=== PATIENT | female | born 1950 ===

== ENCOUNTER 2017-03-14 12:56 | Emergency (ER) | payer MEDICARE, MEDICAID ==
[2017-03-14 13:23] VITALS: BP 159/78; PULSE 62; RESP 20; TEMP 97.5; O2SAT 100
--- NOTE | 2017-03-14 14:16 | C.PDOC ---
History Of Present Illness 66 year old female who presents to the ER with a complaint of right middle finger swelling and pain for the past 5 days. Patient states a little pus drained a day ago but pain and persists which prompted ER visit. Denies weakness or numbness of the right middle finger. Time Seen by Provider: 03/14/17 13:37 Chief Complaint (Nursing): Abnormal Skin Integrity History Per: Patient History/Exam Limitations: no limitations Onset/Duration Of Symptoms: Days Current Symptoms Are (Timing): Still Present Location Of Injury: Right: Hand (Middle finger) Quality Of Symptoms: Painful, Swollen Recent travel outside of the [place]: No Past Medical History Reviewed: Historical Data, Nursing Documentation, Vital Signs Vital Signs: Last Vital Signs Temp 97.5 F L 03/14/17 13:20 Pulse 62 03/14/17 13:20 Resp 20 03/14/17 13:20 BP 159/78 H 03/14/17 13:20 Pulse Ox 100 03/14/17 22:12 - Medical History PMH: HTN Surgical History: No Surg Hx Family History: States: Unknown Family Hx - Social History Hx Alcohol Use: No Hx Substance Use: No - Immunization History Hx Tetanus Toxoid Vaccination: No Hx Influenza Vaccination: No Hx Pneumococcal Vaccination: No Review Of Systems Musculoskeletal: Positive for: Hand Pain (Right middle finger) Neurological: Negative for: Weakness, Numbness Physical Exam - Physical Exam Appears: Non-toxic, No Acute Distress Skin: Warm, Dry Head: Atraumatic, Normacephalic Eye(s): bilateral: Normal Inspection Oral Mucosa: Moist Extremity: Normal ROM (x4), Capillary Refill (<2 seconds), No Deformity, Other ( Swelling and erythema to nail margin of right 3rd finger.) Pulses: Left Radial: Normal, Right Radial: Normal Neurological/Psych: Oriented x3, Normal Speech, Normal Cognition, Normal Motor, Normal Sensation Gait: Steady ED Course And Treatment O2 Sat by Pulse Oximetry: 100 (Room air) Pulse Ox Interpretation: Normal - Incision & Drainage Of Abscess Prep Used: Sterile Water, Betadine Procedure: Incised W/Scalpel Blade#: (11) Medical Decision Making Medical Decision Making: Right 3rd finger was I&D with no pus drainage. Patient will be discharged with Rx for antibiotics and advised to follow up with PMd for further evaluation. Disposition - Disposition Referrals: [facility] [Outside] Disposition: HOME/ ROUTINE Disposition Time: 15:01 Condition: GOOD Additional Instructions: Soak the finger in water. Follow up with the medical doctor within 1-2 days. Return if worsened. Prescriptions: Cephalexin [Keflex] 500 mg PO BID #13 capsule Sulfamethoxazole/Trimethoprim [Bactrim DS 800 mg-160 mg] 1 tab PO BID #13 tab Instructions: Paronychia (ED) Forms: [facility] (M[place]ovan) - Clinical Impression Clinical Impression: Paronychia - Scribe Statement The provider has reviewed the documentation as recorded by the Scribbecki Omer All medical record entries made by the Zuhairibbecki were at my direction and personally dictated by me. I have reviewed the chart and agree that the record accurately reflects my personal performance of the history, physical exam, medical decision making, and the department course for this patient. I have also personally directed, reviewed, and agree with the discharge instructions and disposition.
[2017-03-14] MEDS ORDERED: Lidocaine 1% Inj (20ml) ONE (14:28)
[2017-03-14] MEDS ORDERED: Tmp-Smz 800 mg-160 mg DS Tab PO STA (14:59)
[2017-03-14] MEDS ORDERED: Tmp-Smz 800 mg-160 mg DS Tab ONE (15:07)
== END 2017-03-14 15:24 | disposition home or self-care (01) ==
LOC: C.ER 12:56
DX: L03.011 Cellulitis of right finger (principal); I10 Essential (primary) hypertension